=== PATIENT | female | born 2000 | race Caucasian/White ===

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

== ENCOUNTER → 2019-05-24 | Outpatient (CLI) | payer OTHER ==
[2019-05-26 23:06] LABS: CHLAMYDIA TRACHOMATIS, NAA Negative (Negative); NEISSERIA GONORRHOEAE, NAA Negative (Negative)
== END | disposition home or self-care (01) ==
LOC: LAB SHORT 13:29 → LAB 13:29
PROVIDERS: Advanced Practice Midwife
DX: Z11.3 Encounter for screening for infections with a predominantly sexual mode of transmission (principal)
CPT/HCPCS: 87491; 87591

== ENCOUNTER 2019-06-27 09:48 | Observation (INO) | payer OTHER ==
[~2019-06-27] VITALS: Ht 157.5 cm; Wt 95.4 kg
[2019-06-27 10:31] LABS: BASOPHILS ABSOLUTE AUTO 0.05 K/mm3 (0.00-0.23); BASOPHILS PERCENT AUTO 0 % (0-2); EOSINOPHILS ABSOLUTE AUTO 0.06 K/mm3 (0.00-0.68); EOSINOPHILS PERCENT AUTO 0 % (0-6); Hematocrit 33.9 % (33.0-51.0); Hemoglobin 11.8 g/dL (11.5-16.0); IMMATURE GRAN ABSOLUTE AUTO 0.07 K/mm3 (0.00-0.10); IMMATURE GRAN PERCENT AUTO 1 % (0-1); LYMPHOCYTES ABSOLUTE AUTO 2.27 K/mm3 (0.84-5.20); LYMPHOCYTES PERCENT AUTO 15 % (21-46); MONOCYTES ABSOLUTE AUTO 0.85 K/mm3 (0.16-1.47); MONOCYTES PERCENT AUTO 6 % (4-13); Mean Corpuscular HGB 33.3 pg (26.0-34.0); Mean Corpuscular HGB Conc 34.8 g/dL (31.5-36.5); Mean Corpuscular Volume 96 fL (80-100); NEUTROPHILS ABSOLUTE AUTO 11.53 K/mm3 (1.96-9.15); NEUTROPHILS PERCENT AUTO 78 % (41-73); Platelet Count 214 K/mm3 (150-400); RDW Coefficient Variation 11.7 % (11.7-14.2); RDW Standard Deviation 40.6 fL (35.1-46.3); Red Blood Cell Count 3.54 M/mm3 (3.80-5.20); White Blood Cell Count 14.83 K/mm3 (4.00-11.30)
[2019-06-27 11:02] LABS: Alanine Aminotransfer (ALT/SGP 17 U/L (12-78); Albumin, Blood 2.6 g/dL (3.4-5.0); Albumin/Globulin Ratio 0.6 (0.8-1.8); Alk Phos 102 U/L (45-116); Anion Gap 9 mmol/L (6-16); Aspartate Aminotrans (AST/SGOT 12 U/L (12-37); Bilirubin, Total 0.3 mg/dL (0.1-1.0); Blood Urea Nitrogen 10 mg/dL (8-21); Bun/Creatinine Ratio 21.7 (12.0-20.0); CO2, Blood 22 mmol/L (21-32); Calcium, Blood 8.7 mg/dL (8.5-10.1); Chloride, Blood 108 mmol/L (98-108); Creatinine, Blood 0.46 mg/dL (0.40-1.00); Glomerular Filtration Rate >60 (60-); Glucose, Blood 94 mg/dL (70-99); Potassium, Blood 4.1 mmol/L (3.5-5.5); Sodium, Blood 139 mmol/L (136-145); Total Protein, Blood 6.6 g/dL (6.4-8.2)
[2019-06-28 05:41] LABS: BASOPHILS ABSOLUTE AUTO 0.04 K/mm3 (0.00-0.23); BASOPHILS PERCENT AUTO 0 % (0-2); EOSINOPHILS ABSOLUTE AUTO 0.09 K/mm3 (0.00-0.68); EOSINOPHILS PERCENT AUTO 1 % (0-6); Hemoglobin 10.7 g/dL (11.5-16.0); IMMATURE GRAN ABSOLUTE AUTO 0.06 K/mm3 (0.00-0.10); IMMATURE GRAN PERCENT AUTO 0 % (0-1); LYMPHOCYTES ABSOLUTE AUTO 2.86 K/mm3 (0.84-5.20); LYMPHOCYTES PERCENT AUTO 21 % (21-46); MONOCYTES ABSOLUTE AUTO 0.85 K/mm3 (0.16-1.47); MONOCYTES PERCENT AUTO 6 % (4-13); Mean Corpuscular HGB 32.6 pg (26.0-34.0); Mean Corpuscular HGB Conc 33.4 g/dL (31.5-36.5); Mean Corpuscular Volume 98 fL (80-100); NEUTROPHILS ABSOLUTE AUTO 9.51 K/mm3 (1.96-9.15); NEUTROPHILS PERCENT AUTO 71 % (41-73); Platelet Count 189 K/mm3 (150-400); RDW Coefficient Variation 11.8 % (11.7-14.2); RDW Standard Deviation 42.1 fL (35.1-46.3); Red Blood Cell Count 3.28 M/mm3 (3.80-5.20); White Blood Cell Count 13.41 K/mm3 (4.00-11.30)
[2019-06-28 06:09] LABS: Anion Gap 8 mmol/L (6-16); Blood Urea Nitrogen 5 mg/dL (8-21); Bun/Creatinine Ratio 8.8 (12.0-20.0); CO2, Blood 23 mmol/L (21-32); Calcium, Blood 8.4 mg/dL (8.5-10.1); Chloride, Blood 110 mmol/L (98-108); Creatinine, Blood 0.57 mg/dL (0.40-1.00); Glomerular Filtration Rate >60 (60-); Glucose, Blood 78 mg/dL (70-99); Potassium, Blood 3.6 mmol/L (3.5-5.5); Sodium, Blood 141 mmol/L (136-145)
--- NOTE | 2019-06-28 07:15 | NUR ---
REPORT GIVEN TO BRENDON CHINCHILLA. BEDSIDE REPORT DEFERRED DUE TO PATIENT SLEEPING.
--- NOTE | 2019-06-28 08:36 | NUR ---
U/S HERE FOR REPEAT U/S OF KIDNEYS
--- NOTE | 2019-06-28 10:20 | NUR ---
SENT HOME WITH RALPH
--- NOTE | 2019-06-28 10:34 | NUR ---
D/C INSTRUCTIONS GIVEN AND EXPLAINED DENIES PAIN
--- NOTE | 2019-06-28 11:33 | NUR ---
d/c home with instructions
== END 2019-06-28 11:49 | disposition home or self-care (01) ==
LOC: BC 09:48 → OBS 09:48 → BC 09:49 → OBS 12:20 → BC 12:22
PROVIDERS: ADMIT Family Medicine
DX: O26.833 Pregnancy related renal disease, third trimester (principal); N20.0 Calculus of kidney; Z3A.35 35 weeks gestation of pregnancy; Z88.0 Allergy status to penicillin; Z88.8 Allergy status to other drugs, medicaments and biological substances; Z79.899 Other long term (current) drug therapy
CPT/HCPCS: 36415; 59025; 76770; 80048; 80053; 81003; 85025; 99213; J3010; J7120

== ENCOUNTER → 2019-07-05 | Outpatient (CLI) | payer OTHER | END | disposition home or self-care (01) | LOC: LAB 12:10 → LAB SHORT 12:10 | DX: Z34.93 Encounter for supervision of normal pregnancy, unspecified, third trimester (principal) | CPT/HCPCS: 87081; 87653 ==

== ENCOUNTER → 2019-07-19 | Outpatient (CLI) | payer OTHER ==
[2019-07-20 11:24] LABS: Candida species (DNA Probe) Positive (NEGATIVE); G. vaginalis (DNA Probe) Positive (NEGATIVE); T. vaginalis (DNA Probe) Negative (NEGATIVE)
[2019-07-22 01:10] LABS: CHLAMYDIA TRACHOMATIS, NAA Negative (Negative); NEISSERIA GONORRHOEAE, NAA Negative (Negative)
== END | disposition home or self-care (01) ==
LOC: LAB SHORT 12:06 → LAB 12:06
PROVIDERS: Advanced Practice Midwife
DX: Z11.3 Encounter for screening for infections with a predominantly sexual mode of transmission (principal); N89.8 Other specified noninflammatory disorders of vagina
CPT/HCPCS: 87480; 87491; 87510; 87591; 87660

== ENCOUNTER 2019-07-28 18:21 | Inpatient (IN) | payer OTHER ==
[~2019-07-28] VITALS: Ht 160 cm; Wt 107.0 kg
[2019-07-28 20:05] LABS: BASOPHILS ABSOLUTE AUTO 0.06 K/mm3 (0.00-0.23); BASOPHILS PERCENT AUTO 0 % (0-2); EOSINOPHILS ABSOLUTE AUTO 0.09 K/mm3 (0.00-0.68); EOSINOPHILS PERCENT AUTO 1 % (0-6); Hematocrit 37.2 % (33.0-51.0); Hemoglobin 12.7 g/dL (11.5-16.0); IMMATURE GRAN ABSOLUTE AUTO 0.09 K/mm3 (0.00-0.10); IMMATURE GRAN PERCENT AUTO 1 % (0-1); LYMPHOCYTES ABSOLUTE AUTO 3.45 K/mm3 (0.84-5.20); LYMPHOCYTES PERCENT AUTO 20 % (21-46); MONOCYTES ABSOLUTE AUTO 1.22 K/mm3 (0.16-1.47); MONOCYTES PERCENT AUTO 7 % (4-13); Mean Corpuscular HGB 32.7 pg (26.0-34.0); Mean Corpuscular HGB Conc 34.1 g/dL (31.5-36.5); Mean Corpuscular Volume 96 fL (80-100); Mean Platelet Volume 12.2 fL (9.1-12.4); NEUTROPHILS ABSOLUTE AUTO 12.35 K/mm3 (1.96-9.15); NEUTROPHILS PERCENT AUTO 72 % (41-73); Platelet Count 272 K/mm3 (150-400); RDW Standard Deviation 41.5 fL (35.1-46.3); Red Blood Cell Count 3.88 M/mm3 (3.80-5.20); White Blood Cell Count 17.26 K/mm3 (4.00-11.30)
[2019-07-29 09:12] LABS: PCO2 Cord - Arterial 49.9 mmHg (40-50); pH Cord - Arterial 7.19 (7.28-7.35)
[2019-07-29 09:13] LABS: PCO2 Cord - Venous 40.2 mmHg (40-50); PO2 Cord - Venous 32.4 mmHg (28-32)
[2019-07-30 05:37] LABS: Hematocrit 30.5 % (33.0-51.0); Hemoglobin 10.2 g/dL (11.5-16.0); Mean Corpuscular HGB 32.3 pg (26.0-34.0); Mean Corpuscular HGB Conc 33.4 g/dL (31.5-36.5); Mean Corpuscular Volume 97 fL (80-100); Mean Platelet Volume 12.1 fL (9.1-12.4); Platelet Count 221 K/mm3 (150-400); RDW Coefficient Variation 12.1 % (11.7-14.2); RDW Standard Deviation 42.4 fL (35.1-46.3); Red Blood Cell Count 3.16 M/mm3 (3.80-5.20); White Blood Cell Count 15.22 K/mm3 (4.00-11.30)
[2019-07-30] MEDS ORDERED: IBUP800 PO (10:42)
--- NOTE | 2019-07-30 11:17 | NUR ---
DISCHARGE INSTRUCTIONS, WRITTEN AND VERBAL, GIVEN TO PT AND Chelsi AMARO. ANSWERED ALL QUESTIONS AND CONCERNS. IV DISCONTINUED. FOLLOW UP APPOINTMENT SCHEDULED. PRESCRIPTION SENT IN TO [facility] BY Pasha PELAEZ CNM. PT IS DISCHARGED HOME.
== END 2019-07-30 11:44 | disposition home or self-care (01) | DRG 807 ==
LOC: BC 18:21
PROVIDERS: ADMIT Advanced Practice Midwife
PROC: 10E0XZZ Delivery of Products of Conception, External Approach (ICD-10-PCS; principal; 2019-07-29)
PROC: 10907ZC Drainage of Amniotic Fluid, Therapeutic from Products of Conception, Via Natural or Artificial Opening (ICD-10-PCS; 2019-07-29)
PROC: 0UQG7ZZ Repair Vagina, Via Natural or Artificial Opening (ICD-10-PCS; 2019-07-29)
PROC: 3E0R3BZ Introduction of Anesthetic Agent into Spinal Canal, Percutaneous Approach (ICD-10-PCS; 2019-07-29)
DX: O63.1 Prolonged second stage (of labor) (principal); Z37.0 Single live birth; Z3A.39 39 weeks gestation of pregnancy; O35.9XX0 Maternal care for (suspected) fetal abnormality and damage, unspecified, not applicable or unspecified; O66.0 Obstructed labor due to shoulder dystocia; O76 Abnormality in fetal heart rate and rhythm complicating labor and delivery; O71.89 Other specified obstetric trauma
CPT/HCPCS: 36415; 82803; 85025; 85027; J0694; J1885; J2001; J2590; J3010; J7120

== ENCOUNTER 2021-08-29 01:32 | Emergency (ER) | payer OTHER ==
[~2021-08-29] VITALS: Ht 160 cm; Wt 71.7 kg
[~2021-08-29 01:32] MED LIST changes: +IBUP800 PO
[2021-08-29 04:45] LABS: Calcium, Ionized (POC) 1.13 mmol/L (1.10-1.46); Chloride (POC) 100 mmol/L (98-108); Creatinine (POC) 0.7 mg/dL (0.6-1.0); Glucose (ISTAT POC) 124 mg/dL (70-99); Hemoglobin (POC) 15.3 g/dL (12.0-16.0); Potassium (POC) 3.3 mmol/L (3.5-5.5); Sodium (POC) 144 mmol/L (135-148); Total CO2 (POC) 30 mmol/L (21-32)
[2021-08-29] MEDS ORDERED: ONDA4ODT MM (05:26)
[2021-08-30] MEDS ORDERED: PROM25 PO (12:06)
== END 2021-08-29 06:08 | disposition home or self-care (01) ==
LOC: ER 01:32
PROVIDERS: Emergency Medicine
DX: R11.2 Nausea with vomiting, unspecified (principal); R19.7 Diarrhea, unspecified; F17.200 Nicotine dependence, unspecified, uncomplicated; Z88.0 Allergy status to penicillin
CPT/HCPCS: 36415; 80047; 81025; 85014; 96374; 96375; 99283-25; J2405; J2765; J7030

== ENCOUNTER 2021-08-30 09:45 | Emergency (ER) | payer OTHER ==
[~2021-08-30] VITALS: Ht 160 cm; Wt 68.0 kg
[~2021-08-30 09:45] MED LIST changes: -PROM25 PO
[2021-08-30 10:21] LABS: Source, Urine Clean Catch
[2021-08-30 10:25] LABS: Appearance, Urine Clear (Clear); Bilirubin, Urine Neg (Neg); Blood, Urine Neg (Neg); Color, Urine Yellow (P-Yellow); Glucose Qualitative, Urine Neg (Neg); Ketones, Urine Neg (Neg); Leukocyte Esterase, Urine Neg (Neg); Nitrite, Urine Neg (Neg); Protein, Urine Neg (Neg); Specific Gravity, Urine 1.015 (1.003-1.022); Urobilinogen, Urine NORM (Normal)
[2021-08-30] MEDS ORDERED: PROM25 PO (12:06)
== END 2021-08-30 12:24 | disposition home or self-care (01) ==
LOC: ER 09:45
PROVIDERS: Physician Assistant
DX: R10.31 Right lower quadrant pain (principal); R11.2 Nausea with vomiting, unspecified; Z88.0 Allergy status to penicillin; F17.200 Nicotine dependence, unspecified, uncomplicated
CPT/HCPCS: 74177; 81003; 81025; 99284-25; Q9967

== ENCOUNTER → 2021-08-30 | Outpatient (CLI) | payer OTHER ==
[~2021-08-30] MED LIST changes: +PROM25 PO
[2021-08-30 08:44] LABS: Source, Urine Clean Catch
[2021-08-30 08:47] LABS: BASOPHILS ABSOLUTE AUTO 0.03 K/mm3 (0.00-0.23); BASOPHILS PERCENT AUTO 0 % (0-2); EOSINOPHILS PERCENT AUTO 0 % (0-6); Hematocrit 39.6 % (33.0-51.0); Hemoglobin 14.1 g/dL (11.5-16.0); IMMATURE GRAN ABSOLUTE AUTO 0.06 K/mm3 (0.00-0.10); IMMATURE GRAN PERCENT AUTO 0 % (0-1); LYMPHOCYTES ABSOLUTE AUTO 1.76 K/mm3 (0.84-5.20); LYMPHOCYTES PERCENT AUTO 12 % (21-46); MONOCYTES ABSOLUTE AUTO 1.43 K/mm3 (0.16-1.47); MONOCYTES PERCENT AUTO 10 % (4-13); Mean Corpuscular HGB 33.2 pg (26.0-34.0); Mean Corpuscular HGB Conc 35.6 g/dL (31.5-36.5); Mean Corpuscular Volume 93 fL (80-100); NEUTROPHILS ABSOLUTE AUTO 11.67 K/mm3 (1.96-9.15); NEUTROPHILS PERCENT AUTO 78 % (41-73); Platelet Count 275 K/mm3 (150-400); RDW Coefficient Variation 11.6 % (11.7-14.2); Red Blood Cell Count 4.25 M/mm3 (3.80-5.20); White Blood Cell Count 14.95 K/mm3 (4.00-11.30)
[2021-08-30 08:57] LABS: Red Blood Cells, Urine Not Seen /hpf (0-2); White Blood Cells, Urine Rare /hpf (0-5)
[2021-08-30 08:58] LABS: Alanine Aminotransfer (ALT/SGP 23 U/L (12-78); Albumin, Blood 3.8 g/dL (3.4-5.0); Alk Phos 58 U/L (40-126); Amylase, Blood 138 U/L (25-115); Anion Gap 9 mmol/L (6-16); Aspartate Aminotrans (AST/SGOT 11 U/L (12-37); Bacteria Few /hpf; Bilirubin, Total 0.8 mg/dL (0.1-1.0); Blood Urea Nitrogen 11 mg/dL (8-24); Bun/Creatinine Ratio 13.3 (12.0-20.0); CO2, Blood 31 mmol/L (21-32); Calcium, Blood 9.2 mg/dL (8.5-10.1); Chloride, Blood 99 mmol/L (98-108); Creatinine, Blood 0.83 mg/dL (0.40-1.00); Glomerular Filtration Rate >60 (60-); Glucose, Blood 120 mg/dL (70-99); Mucus Heavy (0-Heavy); Potassium, Blood 2.9 mmol/L (3.5-5.5); Sodium, Blood 139 mmol/L (136-145); Squamous Epithelial Cells Many /hpf (Few); Total Protein, Blood 7.8 g/dL (6.4-8.2)
== END | disposition home or self-care (01) ==
LOC: LAB 08:42 → LAB SHORT 08:42
PROVIDERS: General Practice
DX: R11.2 Nausea with vomiting, unspecified (principal); R82.90 Unspecified abnormal findings in urine
CPT/HCPCS: 80053; 81015; 82150; 85025; 87086

== ENCOUNTER → 2021-09-05 | Outpatient (CLI) | payer OTHER ==
[~2021-09-05] MED LIST changes: +PROM25 PO
[2021-09-05 14:52] LABS: BASOPHILS ABSOLUTE AUTO 0.05 K/mm3 (0.00-0.23); BASOPHILS PERCENT AUTO 0 % (0-2); EOSINOPHILS ABSOLUTE AUTO 0.09 K/mm3 (0.00-0.68); EOSINOPHILS PERCENT AUTO 1 % (0-6); Hematocrit 46.1 % (33.0-51.0); Hemoglobin 16.8 g/dL (11.5-16.0); IMMATURE GRAN ABSOLUTE AUTO 0.04 K/mm3 (0.00-0.10); IMMATURE GRAN PERCENT AUTO 0 % (0-1); LYMPHOCYTES ABSOLUTE AUTO 2.15 K/mm3 (0.84-5.20); LYMPHOCYTES PERCENT AUTO 19 % (21-46); MONOCYTES ABSOLUTE AUTO 0.85 K/mm3 (0.16-1.47); MONOCYTES PERCENT AUTO 7 % (4-13); Mean Corpuscular HGB 33.5 pg (26.0-34.0); Mean Corpuscular HGB Conc 36.4 g/dL (31.5-36.5); Mean Corpuscular Volume 92 fL (80-100); Mean Platelet Volume 11.4 fL (9.1-12.4); NEUTROPHILS ABSOLUTE AUTO 8.32 K/mm3 (1.96-9.15); NEUTROPHILS PERCENT AUTO 72 % (41-73); Platelet Count 292 K/mm3 (150-400); RDW Coefficient Variation 11.7 % (11.7-14.2); RDW Standard Deviation 38.6 fL (35.1-46.3); Red Blood Cell Count 5.02 M/mm3 (3.80-5.20)
[2021-09-05 14:55] LABS: Anion Gap 10 mmol/L (6-16); Blood Urea Nitrogen 11 mg/dL (8-24); Bun/Creatinine Ratio 12.8 (12.0-20.0); CO2, Blood 29 mmol/L (21-32); Calcium, Blood 9.5 mg/dL (8.5-10.1); Chloride, Blood 98 mmol/L (98-108); Creatinine, Blood 0.86 mg/dL (0.40-1.00); Glomerular Filtration Rate >60 (60-); Glucose, Blood 90 mg/dL (70-99); Potassium, Blood 3.6 mmol/L (3.5-5.5); Sodium, Blood 137 mmol/L (136-145)
== END | disposition home or self-care (01) ==
LOC: LAB SHORT 14:37
PROVIDERS: Chiropractor
DX: R10.9 Unspecified abdominal pain (principal); R11.2 Nausea with vomiting, unspecified; R82.79 Other abnormal findings on microbiological examination of urine
CPT/HCPCS: 80048; 83690; 85025; 87086

== ENCOUNTER → 2023-08-25 | Outpatient (CLI) | payer OTHER ==
[2023-08-26 11:42] LABS: Bacterial Vaginosis PCR Negative (NEGATIVE)
[2023-08-26 12:00] LABS: Candida Group, PCR DETECTED (NOT DETECT); Candida glabrata-krusei, PCR DETECTED (NOT DETECT)
[2023-08-28 23:31] LABS: APTIMA MEDIA TYPE Unisex Swab; C. TRACHOMATIS BY TMA Negative (Negative); N. GONORRHOEAE BY TMA Negative (Negative); SPECIMEN SOURCE Vaginal; T. VAGINALIS BY TMA Negative (Negative)
== END ==
LOC: LAB 17:04 → LAB SHORT 17:04
PROVIDERS: Nurse Practitioner Family
DX: N94.9 Unspecified condition associated with female genital organs and menstrual cycle (principal)
CPT/HCPCS: 87481; 87491; 87591; 87661; 87801

== ENCOUNTER 2024-01-31 15:30 | Emergency (ER) | payer OTHER ==
[2024-01-31 17:32] LABS: BASOPHILS ABSOLUTE AUTO 0.07 K/mm3 (0.00-0.23); BASOPHILS PERCENT AUTO 0 % (0-2); EOSINOPHILS PERCENT AUTO 0 % (0-6); Hematocrit 40.6 % (33.0-51.0); Hemoglobin 14.8 g/dL (11.5-16.0); IMMATURE GRAN ABSOLUTE AUTO 0.08 K/mm3 (0.00-0.10); IMMATURE GRAN PERCENT AUTO 1 % (0-1); LYMPHOCYTES ABSOLUTE AUTO 1.21 K/mm3 (0.84-5.20); LYMPHOCYTES PERCENT AUTO 7 % (21-46); MONOCYTES ABSOLUTE AUTO 0.68 K/mm3 (0.16-1.47); MONOCYTES PERCENT AUTO 4 % (4-13); Mean Corpuscular HGB 33.6 pg (26.0-34.0); Mean Corpuscular HGB Conc 36.5 g/dL (31.5-36.5); Mean Corpuscular Volume 92 fL (80-100); Mean Platelet Volume 11.1 fL (9.1-12.4); NEUTROPHILS ABSOLUTE AUTO 15.09 K/mm3 (1.96-9.15); NEUTROPHILS PERCENT AUTO 88 % (41-73); Platelet Count 310 K/mm3 (150-400); RDW Coefficient Variation 11.2 % (11.7-14.2); RDW Standard Deviation 38.5 fL (35.1-46.3); White Blood Cell Count 17.13 K/mm3 (4.00-11.30)
[2024-01-31 17:45] LABS: Alanine Aminotransfer (ALT/SGP 25 U/L (12-78); Albumin, Blood 4.5 g/dL (3.4-5.0); Albumin/Globulin Ratio 1.2 (0.8-1.8); Alk Phos 58 U/L (50-136); Anion Gap 10 mmol/L (3-11); Aspartate Aminotrans (AST/SGOT 17 U/L (12-37); Blood Urea Nitrogen 10 mg/dL (8-24); Bun/Creatinine Ratio 14.2 (12.0-20.0); CO2, Blood 24 mmol/L (21-32); Calcium, Blood 9.3 mg/dL (8.5-10.1); Chloride, Blood 109 mmol/L (98-108); Creatinine, Blood 0.71 mg/dL (0.40-1.00); Ethanol (Alcohol), Blood, Med <3 mg/dL; Globulin, Blood 3.9 g/dL (2.2-4.0); Glomerular Filtration Rate 122 (60-); Glucose, Blood 128 mg/dL (70-99); Potassium, Blood 3.9 mmol/L (3.5-5.5); Sodium, Blood 139 mmol/L (136-145); Total Protein, Blood 8.4 g/dL (6.4-8.2)
[2024-01-31] MEDS ORDERED: Ondansetron HCl 2 MG / ML 2ML Vial IV ONE (18:15)
[2024-01-31] MEDS ORDERED: Lactated Ringer's 1,000 ML IV ONE ×2 (18:15→22:25)
[2024-01-31] MEDS ORDERED: Metoclopramide HCl 5MG / ML 2ML Vial IV ONE (21:20)
[2024-01-31 21:38] LABS: Source, Urine Clean Catch
[2024-01-31 21:41] LABS: Appearance, Urine Hazy (Clear); Bilirubin, Urine Neg (Neg); Blood, Urine 4+ (Neg); Color, Urine Yellow (P-Yellow); Glucose Qualitative, Urine Neg (Neg); Ketones, Urine 4+ (Neg); Leukocyte Esterase, Urine Neg (Neg); Nitrite, Urine Neg (Neg); Protein, Urine 1+ (Neg); Urobilinogen, Urine NORM (Normal)
[2024-01-31 21:53] LABS: Amorphous Mod (0-Heavy); Bacteria Few /hpf; Red Blood Cells, Urine 0-2 /hpf (0-2); Squamous Epithelial Cells Few /hpf (Few); White Blood Cells, Urine 0-2 /hpf (0-5)
[2024-01-31] MEDS ORDERED: RX Prepack 2 Tabs Ondansetron ODT 4MG UD ONE (22:05)
[2024-01-31] MEDS ORDERED: METO5A PO (22:05)
[2024-01-31] MEDS ORDERED: Droperidol 5 mg/2 ml Vial IV ONE (22:25)
[2024-02-01 01:44] VITALS: BP 100/56
[2024-02-02] MEDS ORDERED: PROM12.5S PR (11:26)
[2024-02-02] MEDS ORDERED: FAMO20 PO (11:33)
== END 2024-02-01 01:58 | disposition home or self-care (01) ==
LOC: ER 15:30
PROVIDERS: Physician Assistant; Student in an Organized Health Care Education/Training Program
DX: R11.2 Nausea with vomiting, unspecified (principal); R10.84 Generalized abdominal pain; Z88.0 Allergy status to penicillin; Z88.8 Allergy status to other drugs, medicaments and biological substances
CPT/HCPCS: 74177; 80053; 80320; 81001; 81025; 83690; 85025; 96361; 96374-59; 96375; 99284-25; A9270; J1790; J2405; J2765; J7120; Q9967

== ENCOUNTER 2024-02-02 03:07 | Observation (INO) | payer OTHER ==
[~2024-02-02] VITALS: Ht 160 cm; Wt 83.5 kg
[~2024-02-02 03:07] MED LIST changes: +METO5A PO
[2024-02-02] MEDS ORDERED: Ondansetron HCl 2 MG / ML 2ML Vial IV ONE (05:25)
[2024-02-02 05:26] LABS: BASOPHILS ABSOLUTE AUTO 0.05 K/mm3 (0.00-0.23); BASOPHILS PERCENT AUTO 0 % (0-2); EOSINOPHILS ABSOLUTE AUTO 0.02 K/mm3 (0.00-0.68); EOSINOPHILS PERCENT AUTO 0 % (0-6); Hematocrit 40.8 % (33.0-51.0); Hemoglobin 14.9 g/dL (11.5-16.0); IMMATURE GRAN ABSOLUTE AUTO 0.05 K/mm3 (0.00-0.10); IMMATURE GRAN PERCENT AUTO 0 % (0-1); LYMPHOCYTES ABSOLUTE AUTO 1.75 K/mm3 (0.84-5.20); LYMPHOCYTES PERCENT AUTO 12 % (21-46); MONOCYTES ABSOLUTE AUTO 1.07 K/mm3 (0.16-1.47); MONOCYTES PERCENT AUTO 7 % (4-13); Mean Corpuscular HGB 33.6 pg (26.0-34.0); Mean Corpuscular HGB Conc 36.5 g/dL (31.5-36.5); Mean Corpuscular Volume 92 fL (80-100); Mean Platelet Volume 11.2 fL (9.1-12.4); NEUTROPHILS ABSOLUTE AUTO 11.49 K/mm3 (1.96-9.15); NEUTROPHILS PERCENT AUTO 80 % (41-73); Platelet Count 291 K/mm3 (150-400); RDW Standard Deviation 37.2 fL (35.1-46.3); Red Blood Cell Count 4.43 M/mm3 (3.80-5.20); White Blood Cell Count 14.43 K/mm3 (4.00-11.30)
[2024-02-02 05:42] LABS: Albumin, Blood 4.3 g/dL (3.4-5.0); Albumin/Globulin Ratio 1.1 (0.8-1.8); Bilirubin, Total 1.4 mg/dL (0.1-1.0); Bun/Creatinine Ratio 18.3 (12.0-20.0); Calcium, Blood 9.5 mg/dL (8.5-10.1); Creatinine, Blood 0.77 mg/dL (0.40-1.00); Potassium, Blood 3.6 mmol/L (3.5-5.5); Total Protein, Blood 8.3 g/dL (6.4-8.2)
[2024-02-02] MEDS ORDERED: D5W-NS 500 ML IV SCH (06:05)
[2024-02-02] MEDS ORDERED: Droperidol 5 mg/2 ml Vial IV ONE ×3 (06:10→09:25)
[2024-02-02] MEDS ORDERED: Mag Hydrox/AL Hydrox/Simeth 30 ML UDC PO ONE (06:15)
[2024-02-02] MEDS ORDERED: Famotidine 10 MG/ML 2ML Vial IV ONE (06:15)
[2024-02-02] MEDS ORDERED: D5W-NS 1,000 ML IV SCH ×2 (06:20→13:30)
[2024-02-02] MEDS ORDERED: PROM12.5S PR (11:26)
[2024-02-02] MEDS ORDERED: FAMO20 PO (11:33)
[2024-02-02] MEDS ORDERED: Metoclopramide HCl 5MG / ML 2ML Vial IV ONE (11:40)
[2024-02-02] MEDS ORDERED: NS 1,000 ML IV SCH (11:45)
[2024-02-02] MEDS ORDERED: Acetaminophen 325 MG TABLET PO PRN (13:30)
[2024-02-02] MEDS ORDERED: Ondansetron HCl 2 MG / ML 2ML Vial IV PRN (13:35)
[2024-02-02] MEDS ORDERED: Metoclopramide HCl 5MG / ML 2ML Vial IV PRN (13:35)
[2024-02-02] MEDS ORDERED: LORazepam 2 MG/ML 1ML Injection IV PRN (13:35)
[2024-02-02] MEDS ORDERED: FLU VACC TS2024-25(6MOS UP)/PF 45 MCG/0.5 ML SYRINGE IM ONE (13:35)
[2024-02-02 14:59] VITALS: BP 123/82
--- NOTE | 2024-02-02 15:38 | NUR ---
Pt arrived to [address] via wheelchair, she is independent in the room, gait noted to be steady, a/ox4, pleasant and coopertive with care, follows commands well, denies pain, states last she vomited was this am, doing ok for now, started fluids as ordered, lungs are clear t/o, resp even and unlabored, on r/a, no cough noted, hrr, no edema noted, ppp+2, cap refill <3 sec, vs stable, afebrile, piv to lac site is clear and patent, btx4, abd flat soft nontender, voids without diff, skin c/w/d, maew, britt, call light in reach.
[2024-02-02] MEDS ORDERED: Dronabinol 2.5 MG Cap PO SCH (16:30)
--- NOTE | 2024-02-02 19:12 | NUR ---
pt has been sleepy since she's been to the floor, no active vomiting, no further changes this shift, call light in reach.
[2024-02-02 19:23] VITALS: BP 143/99
[2024-02-03 02:08] VITALS: BP 148/91
[2024-02-03 05:40] LABS: BASOPHILS ABSOLUTE AUTO 0.06 K/mm3 (0.00-0.23); BASOPHILS PERCENT AUTO 1 % (0-2); EOSINOPHILS ABSOLUTE AUTO 0.03 K/mm3 (0.00-0.68); EOSINOPHILS PERCENT AUTO 0 % (0-6); Hematocrit 36.8 % (33.0-51.0); Hemoglobin 13.1 g/dL (11.5-16.0); IMMATURE GRAN ABSOLUTE AUTO 0.05 K/mm3 (0.00-0.10); IMMATURE GRAN PERCENT AUTO 1 % (0-1); LYMPHOCYTES PERCENT AUTO 19 % (21-46); MONOCYTES ABSOLUTE AUTO 0.84 K/mm3 (0.16-1.47); MONOCYTES PERCENT AUTO 8 % (4-13); Mean Corpuscular HGB 32.9 pg (26.0-34.0); Mean Corpuscular HGB Conc 35.6 g/dL (31.5-36.5); Mean Corpuscular Volume 93 fL (80-100); Mean Platelet Volume 11.3 fL (9.1-12.4); NEUTROPHILS ABSOLUTE AUTO 7.84 K/mm3 (1.96-9.15); NEUTROPHILS PERCENT AUTO 72 % (41-73); Platelet Count 269 K/mm3 (150-400); RDW Coefficient Variation 10.7 % (11.7-14.2); RDW Standard Deviation 36.5 fL (35.1-46.3); Red Blood Cell Count 3.98 M/mm3 (3.80-5.20); White Blood Cell Count 10.82 K/mm3 (4.00-11.30)
[2024-02-03] MEDS ORDERED: Pantoprazole Sodium 40 MG Injection IV SCH (06:00)
[2024-02-03 06:38] LABS: Bun/Creatinine Ratio 11.6 (12.0-20.0); Calcium, Blood 8.8 mg/dL (8.5-10.1); Creatinine, Blood 0.69 mg/dL (0.40-1.00); Potassium, Blood 3.3 mmol/L (3.5-5.5)
--- NOTE | 2024-02-03 06:42 | NUR ---
Shift Summary Pt states she felt more nausea and had more emsis after taking Marinol yesterday, I advised her not to take that medication again and will pass that on in report. Zofran did not help her feel better, she also stated that it made her more sick during . Regalin only helped a little. She took multiple hot showers to relieve the nausea. I gave PRN Ativan x1 which allowed her to feel better and sleep. She is still not able to eat or drink, a sip of water makes her nauseuos. She is rcving D5W at 100. AOx4, independent in the room.
[2024-02-03 07:27] VITALS: BP 123/86
[2024-02-03] MEDS ORDERED: Enoxaparin 40 MG/0.4 ML SYR SC SCH (09:00)
[2024-02-03] MEDS ORDERED: FAMO20 PO (11:18)
--- NOTE | 2024-02-03 11:56 | NUR ---
1140 discharge paperwork reviewed with patient. pt verbalizes understanding of all discharge instructions. pt denies nausea. ambulating in room.pt declines wheelchair transport out of hospital states her car is in parking lot and she is driving self home. discharged to home at 1140
== END 2024-02-03 11:44 | disposition home or self-care (01) ==
LOC: ER 03:07 → MEDS 03:08
PROVIDERS: Student in an Organized Health Care Education/Training Program; ADMIT Internal Medicine
DX: R11.2 Nausea with vomiting, unspecified (principal); E86.0 Dehydration; F90.9 Attention-deficit hyperactivity disorder, unspecified type; F12.929 Cannabis use, unspecified with intoxication, unspecified; F32.9 Major depressive disorder, single episode, unspecified; D72.829 Elevated white blood cell count, unspecified; Z88.0 Allergy status to penicillin; Z88.8 Allergy status to other drugs, medicaments and biological substances; Z79.899 Other long term (current) drug therapy
CPT/HCPCS: 36415; 80048; 80053; 83690; 84703; 85025; 94760; 96361; 96372; 96374; 96375; 96376; 99284-25; A9270; G0378; J1650; J1790; J2060; J2405; J2470; J2765; J7030; J7042; Q0167

== ENCOUNTER → 2024-07-07 | Outpatient (CLI) | payer OTHER ==
[~2024-07-07] MED LIST changes: +PROM12.5S PR
[2024-07-07 13:11] LABS: Source, Urine Clean Catch
[2024-07-07 14:40] LABS: Appearance, Urine Clear (Clear); Bilirubin, Urine Neg (Neg); Blood, Urine Neg (Neg); Color, Urine Yellow (P-Yellow); Glucose Qualitative, Urine Neg (Neg); Ketones, Urine Neg (Neg); Leukocyte Esterase, Urine Neg (Neg); Nitrite, Urine Neg (Neg); Protein, Urine Neg (Neg); Specific Gravity, Urine 1.015 (1.003-1.022); Urobilinogen, Urine NORM (Normal)
[2024-07-07 14:53] LABS: BASOPHILS ABSOLUTE AUTO 0.03 K/mm3 (0.00-0.23); BASOPHILS PERCENT AUTO 0 % (0-2); EOSINOPHILS ABSOLUTE AUTO 0.04 K/mm3 (0.00-0.68); EOSINOPHILS PERCENT AUTO 0 % (0-6); Hematocrit 36.6 % (33.0-51.0); Hemoglobin 13.1 g/dL (11.5-16.0); IMMATURE GRAN ABSOLUTE AUTO 0.03 K/mm3 (0.00-0.10); IMMATURE GRAN PERCENT AUTO 0 % (0-1); LYMPHOCYTES ABSOLUTE AUTO 1.67 K/mm3 (0.84-5.20); LYMPHOCYTES PERCENT AUTO 18 % (21-46); MONOCYTES ABSOLUTE AUTO 0.45 K/mm3 (0.16-1.47); MONOCYTES PERCENT AUTO 5 % (4-13); Mean Corpuscular HGB 32.8 pg (26.0-34.0); Mean Corpuscular HGB Conc 35.8 g/dL (31.5-36.5); Mean Corpuscular Volume 92 fL (80-100); Mean Platelet Volume 11.7 fL (9.1-12.4); NEUTROPHILS PERCENT AUTO 77 % (41-73); Platelet Count 225 K/mm3 (150-400); RDW Coefficient Variation 11.1 % (11.7-14.2); RDW Standard Deviation 37.3 fL (35.1-46.3); White Blood Cell Count 9.52 K/mm3 (4.00-11.30)
[2024-07-09 09:30] LABS: HEPATITIS B SURFACE ANTIGEN Negative (Negative)
[2024-07-09 16:25] LABS: HIV 1,2 COMBO ANTIGEN/ANTIBODY Negative (Negative)
[2024-07-09 16:48] LABS: HEPATITIS C AB CIA INTERP Negative (Negative); HEPATITIS C ANTIBODY CIA INDEX 0.09 IV
== END ==
LOC: LAB 13:09 → LAB SHORT 13:09
PROVIDERS: Registered Nurse Community Health
DX: Z34.91 Encounter for supervision of normal pregnancy, unspecified, first trimester (principal)
CPT/HCPCS: 81003; 84443; 86803; 87086; 87340; 87389

== ENCOUNTER → 2024-07-15 | Outpatient (CLI) | payer OTHER ==
[2024-07-15 19:48] LABS: Chlamydia Trachomatis Urine NOT DETECTED (NOT DETECT); Neisseria Gonorrhoea Urine NOT DETECTED (NOT DETECT)
== END ==
LOC: LAB SHORT 15:24 → LAB 15:24
PROVIDERS: Registered Nurse Community Health
DX: Z34.92 Encounter for supervision of normal pregnancy, unspecified, second trimester (principal)
CPT/HCPCS: 87491; 87591

== ENCOUNTER → 2024-08-11 | Outpatient (CLI) | payer OTHER | LOC: EDSTATUS 06:13 → LAB SHORT 17:30 | DX: Z34.82 Encounter for supervision of other normal pregnancy, second trimester (principal) | CPT/HCPCS: 83036 ==

== ENCOUNTER 2025-01-03 10:52 | Inpatient (IN) | payer OTHER ==
[~2025-01-03] VITALS: Ht 157.5 cm; Wt 105.0 kg
[2025-01-03] VITALS (23 sets, daily range): BP systolic 102–177; BP diastolic 57–99
[2025-01-03] MEDS ORDERED: OXYTOCIN/RINGER'S LACTATE 500 ML IV PRN (11:10)
[2025-01-03] MEDS ORDERED: Oxytocin 10 Unit / ML Vial IM PRN (11:10)
[2025-01-03] MEDS ORDERED: Ondansetron HCl 2 MG / ML 2ML Vial IV PRN (11:10)
[2025-01-03] MEDS ORDERED: Carboprost Tromethamine 250 MCG/ML 1ML Amp IM PRN (11:10)
[2025-01-03] MEDS ORDERED: Tranexamic Acid 100 ML IV SCH (11:10)
[2025-01-03] MEDS ORDERED: Methylergonovine Maleate 0.2MG / ML 1ML Amp IM PRN (11:10)
[2025-01-03] MEDS ORDERED: ePHEDrine Sulfate 50 MG/ML 1ML Injection XX PRN (11:15)
[2025-01-03] MEDS ORDERED: FentaNYL 2mcg/ml-Bup 0.1% Epd 250 ML EPI PRN (11:15)
[2025-01-03] MEDS ORDERED: OXYTOCIN/RINGER'S LACTATE 500 ML IV SCH (11:15)
[2025-01-03] MEDS ORDERED: FentaNYL Citrate 50 MCG/ML 2 ML Injection IV PRN (11:15)
[2025-01-03] MEDS ORDERED: PRENATAL TABLE1 EAC2 PO (11:52)
[2025-01-03 11:58] LABS: BASOPHILS ABSOLUTE AUTO 0.04 K/mm3 (0.00-0.23); BASOPHILS PERCENT AUTO 0 % (0-2); EOSINOPHILS ABSOLUTE AUTO 0.08 K/mm3 (0.00-0.68); EOSINOPHILS PERCENT AUTO 1 % (0-6); Hematocrit 33.8 % (33.0-51.0); Hemoglobin 11.7 g/dL (11.5-16.0); IMMATURE GRAN ABSOLUTE AUTO 0.06 K/mm3 (0.00-0.10); IMMATURE GRAN PERCENT AUTO 1 % (0-1); LYMPHOCYTES ABSOLUTE AUTO 2.53 K/mm3 (0.84-5.20); LYMPHOCYTES PERCENT AUTO 25 % (21-46); MONOCYTES ABSOLUTE AUTO 0.77 K/mm3 (0.16-1.47); MONOCYTES PERCENT AUTO 8 % (4-13); Mean Corpuscular HGB Conc 34.6 g/dL (31.5-36.5); Mean Corpuscular Volume 95 fL (80-100); NEUTROPHILS ABSOLUTE AUTO 6.78 K/mm3 (1.96-9.15); NEUTROPHILS PERCENT AUTO 66 % (41-73); NRBC ABSOLUTE 0.00 K/mm3 (0.00-0.02); NRBC Auto 0.0 /100 WBC (0.0-0.2); Platelet Count 227 K/mm3 (150-400); RDW Coefficient Variation 11.5 % (11.7-14.2); RDW Standard Deviation 39.8 fL (35.1-46.3)
[2025-01-03] MEDS ORDERED: CeFAZolin Sodium 2,000 MG in NS 100 ML IV SCH (12:00)
[2025-01-03] MEDS ORDERED: Cefazolin 2000MG/Dextrose,ISO 50 ML IV SCH (14:00)
[2025-01-04] VITALS (12 sets, daily range): BP systolic 108–147; BP diastolic 61–79
[2025-01-04] MEDS ORDERED: CeFAZolin Sodium 2,000 MG in NS 100 ML IV PRN (01:35)
[2025-01-04] MEDS ORDERED: Citric Acid/Sodium Citrate 30 ML BTL PO PRN (01:40)
[2025-01-04] MEDS ORDERED: Metoclopramide HCl 5MG / ML 2ML Vial IV PRN (01:40)
[2025-01-04 02:53] LABS: PCO2 Cord - Arterial 65.5 mmHg (40-50); PO2 Cord - Arterial 19.3 mmHg (16-20); pH Cord - Arterial 7.15 (7.28-7.35)
[2025-01-04 02:54] LABS: PCO2 Cord - Venous 49.9 mmHg (40-50); PO2 Cord - Venous 19.7 mmHg (28-32); pH Umbilical Cord - Venous 7.28 (7.26-7.35)
[2025-01-04] MEDS ORDERED: Witch Hazel/Glycerin PADS TOP PRN (03:10)
[2025-01-04] MEDS ORDERED: Ketorolac Tromethamine 30mg Vial IV PRN (03:10)
[2025-01-04] MEDS ORDERED: OXYTOCIN/RINGER'S LACTATE 500 ML IV SCH (03:15)
[2025-01-04] MEDS ORDERED: Oxytocin 10 Unit / ML Vial IM ONE (03:15)
[2025-01-04] MEDS ORDERED: OxyCODONE 5 mg/Acetamin 325 mg TABLET PO PRN (03:15)
[2025-01-04] MEDS ORDERED: Benzocaine Topical Anesthetic Spray 60GM TOP PRN (03:20)
[2025-01-04] MEDS ORDERED: Methylergonovine Maleate 0.2MG / ML 1ML Amp IM PRN (03:20)
[2025-01-04] MEDS ORDERED: Acetaminophen/Codeine 300-30 mg PO PRN (03:20)
[2025-01-04] MEDS ORDERED: Carboprost Tromethamine 250 MCG/ML 1ML Amp IM PRN (03:20)
[2025-01-04 08:40] LABS: BASOPHILS ABSOLUTE AUTO 0.04 K/mm3 (0.00-0.23); BASOPHILS PERCENT AUTO 0 % (0-2); EOSINOPHILS ABSOLUTE AUTO 0.01 K/mm3 (0.00-0.68); EOSINOPHILS PERCENT AUTO 0 % (0-6); Hematocrit 30.6 % (33.0-51.0); Hemoglobin 10.6 g/dL (11.5-16.0); IMMATURE GRAN ABSOLUTE AUTO 0.15 K/mm3 (0.00-0.10); IMMATURE GRAN PERCENT AUTO 1 % (0-1); LYMPHOCYTES ABSOLUTE AUTO 1.99 K/mm3 (0.84-5.20); LYMPHOCYTES PERCENT AUTO 8 % (21-46); MONOCYTES ABSOLUTE AUTO 1.64 K/mm3 (0.16-1.47); MONOCYTES PERCENT AUTO 7 % (4-13); Mean Corpuscular HGB Conc 34.6 g/dL (31.5-36.5); Mean Corpuscular Volume 95 fL (80-100); NEUTROPHILS ABSOLUTE AUTO 21.29 K/mm3 (1.96-9.15); NEUTROPHILS PERCENT AUTO 85 % (41-73); NRBC ABSOLUTE 0.00 K/mm3 (0.00-0.02); NRBC Auto 0.0 /100 WBC (0.0-0.2); Platelet Count 196 K/mm3 (150-400); RDW Coefficient Variation 11.6 % (11.7-14.2); RDW Standard Deviation 39.8 fL (35.1-46.3)
[2025-01-04] MEDS ORDERED: Prenatal Vit/FE Fumarate/FA 1 Tab PO SCH (09:00)
[2025-01-05 03:55] VITALS: BP 107/72
[2025-01-05 07:52] VITALS: BP 114/63
[2025-01-05 09:46] VITALS: BP 119/76
== END 2025-01-05 10:05 | disposition home or self-care (01) | DRG 807 ==
LOC: OBS 10:52 → BC 10:56 → OBS 11:04 → BC 11:05
PROVIDERS: ADMIT Registered Nurse Community Health
PROC: 10E0XZZ Delivery of Products of Conception, External Approach (ICD-10-PCS; principal; 2025-01-04)
PROC: 3E0R3BZ Introduction of Anesthetic Agent into Spinal Canal, Percutaneous Approach (ICD-10-PCS; 2025-01-04)
PROC: 00HU33Z Insertion of Infusion Device into Spinal Canal, Percutaneous Approach (ICD-10-PCS; 2025-01-04)
PROC: 0HQ9XZZ Repair Perineum Skin, External Approach (ICD-10-PCS; 2025-01-04)
PROC: 3E03329 Introduction of Other Anti-infective into Peripheral Vein, Percutaneous Approach (ICD-10-PCS; 2025-01-04)
DX: O24.429 Gestational diabetes mellitus in childbirth, unspecified control (principal); Z37.0 Single live birth; Z3A.38 38 weeks gestation of pregnancy; O70.0 First degree perineal laceration during delivery; Z88.0 Allergy status to penicillin; Z88.8 Allergy status to other drugs, medicaments and biological substances
CPT/HCPCS: 36415; 51702; 82803; 82947; 85025; 86850; 86900; 86901; 86923; 94660; A9270; J0690; J1885; J2405; J2590; J3010; J7120